=== PATIENT | female | born 1995 | race Caucasian/White ===

== ENCOUNTER 2016-12-15 21:22 | Emergency (ER) | payer OTHER ==
[2016-12-15] MEDS ORDERED: ONDANSETRON 4 MG/2 ML VIAL ONE (22:02)
[2016-12-15] MEDS ORDERED: NS 1,000 ML IV ONE ×2 (22:10→23:52)
[2016-12-15] MEDS ORDERED: ONDANSETRON 4 MG/2 ML VIAL IVP ONE (22:24)
--- NOTE | 2016-12-15 22:37 | EDPHY ---
H & P Stated Complaint: SHELLEY, N/V, abd pain, fatigue arrived from [place] yesterday HPI/ROS: CHIEF COMPLAINT: Nausea, vomiting, diarrhea, headache HISTORY OF PRESENT ILLNESS: Patient complains of nausea, diarrhea malaise, headache. She was recently in [facility] for 2 and half months. Approximately 11 days ago she developed diarrhea. This was profuse, watery diarrhea multiple times per day. This improved but not resolved over the course of 7 days. Three days ago she was seen there in [facility] and started on ciprofloxacin. Since that time, her diarrhea has significantly improved. She now complains of ongoing nausea, occasional vomiting, mild frontal headache and malaise. Today she slept for 5 hours unintentionally and had difficulty with her thought process after waking. She has no chest pain or shortness of breath. No back pain. 1 episode of fever. She has not had any neck pain or stiffness in time. She has some mild abdominal discomfort but no actual pain at this time. Blood work was drawn yesterday at [place]. No other associated complaints or modifying factors. Patient was traveling for leisure as she is about to start [employer] school this summer. REVIEW OF SYSTEMS: Ten systems reviewed and are negative unless otherwise noted in the HPI PERTINENT MEDICAL HISTORY: Denies EXAMINATION General Appearance: Alert, no distress Head: normocephalic, atraumatic Eyes: Pupils equal and round, no conjunctival pallor or injection. EOMs intact. No nystagmus. ENT, Mouth: Mucous membranes moist. Patchy erythema the posterior pharynx consistent with [id number]. There is no edema. Airway is widely patent. Uvula is midline. Neck: Normal inspection, supple, non-tender. No rigidity or meningismus. Painless range of motion all planes. Respiratory: Lungs are clear to auscultation. No wheezing, rhonchi or crackles. Cardiovascular: Regular rate and rhythm. No murmur. Pulses intact distally. Gastrointestinal: Bowel sounds are diminished but equal in all 4 quadrants. Abdomen is soft and nontender. No tympany. No rigidity. No CVA tenderness. Benign abdominal examination. Back: non-tender, no bony abnormalities Neurological: GCS 15. A&O, nonfocal, strength symmetric in all 4 limbs at 5/5. Normal [id number]. No pronator drift. Skin: Warm and dry, no rash. No petechiae or purpura. Extremities: Nontender, no pedal edema Psychiatric: Mood and affect normal DIFFERENTIAL DIAGNOSES: Including but not limited to viral illness, influenza, dehydration, food-borne illness, electrolyte disturbance MDM: 10:25 p.m. Nausea, vomiting, fatigue, headache and malaise. Diarrhea that has significantly improved last 24 hours. Vital signs were well within normal limits. Abdominal neuro exam is normal. Headache is mild at this point laboratory studies are pending. 11:40 p.m. Notified by RN the patient is still nauseated. I have ordered Reglan and Benadryl. Laboratory studies reveal a very mild elevation in her creatinine of 1.3, but this is an increase from 0.7 yesterday. Continue to provide IV fluid resuscitation monitor. 12:40 a.m. I have re-evaluated the patient 3 times. She continues to feel better with IV fluid resuscitation, and particularly after the Reglan and Benadryl IV. Her headache is improved. Dr. Sexton evaluated the patient. He offered CT scan and LP and she has declined. I do not feel that she exhibits any signs of meningismus by examination, but we did offer these test for further delineation. She has discussed the risks, benefits and alternatives and is comfortable with assuming the risk and declined the test. She will be discharged home with 2 forms of nausea medicine as well as Fioricet for headache. She was given strict return to the emergency department precautions for worsening headache, fever, any neck pain or stiffness, persistent vomiting. She is to rest, increase her fluid intake, and increase her caloric intake over the next few days. She verbalized her understanding of this. She is discharged home stable condition. SUPERVISION: Patient was evaluated in conjunction with the supervising physician. Please see their note for details. Source: Patient, Family Exam Limitations: No limitations - Personal History LMP (Females 10-55): Now Current Tetanus/Diphtheria Vaccine: Yes Current Tetanus Diphtheria and Acellular Pertussis (TDAP): Yes Tetanus Vaccine Date: 2014 - Medical/Surgical History Hx Asthma: No Hx Chronic Respiratory Disease: No Hx Diabetes: No Hx Cardiac Disease: No Hx Renal Disease: No Hx Cirrhosis: No Hx Alcoholism: No Hx HIV/AIDS: No Hx Splenectomy or Spleen Trauma: No Other PMH: denies - Social History Smoking Status: Never smoked Constitutional: Initial Vital Signs Temperature (C) 97.7 F 12/15/16 21:28 Heart Rate 92 12/15/16 21:28 Respiratory Rate 16 12/15/16 21:28 Blood Pressure 130/81 H 12/15/16 21:28 O2 Sat (%) 100 12/15/16 21:28 O2 Delivery Mode Room Air Allergies/Adverse Reactions: No Known Allergies Allergy (Unverified 12/15/16 21:31) Home Medications: Medication Instructions Recorded Cipro 12/15/16 Lexapro 12/15/16 Acet/Caffeine/Buta Fioricet 1 each PO Q6 PRN #15 tab 12/16/16 [Fioricet (*)] Ondansetron Odt [Zofran Odt 4 mg 4 mg PO Q6 PRN #12 tab 12/16/16 (*)] Promethazine HCl [Phenergan 25mg 25 mg PO Q8 PRN #12 tab 12/16/16 (*)] Medical Decision Making - Data Points Laboratory Results: Laboratory Results 12/15/16 22:10 12/15/16 22:10 12/15/16 12/15/16 12/15/16 22:30 22:10 22:10 WBC RBC Hgb Hct MCV MCH MCHC RDW Plt Count MPV Neut % (Auto) Lymph % (Auto) [place] % (Auto) Eos % (Auto) Baso % (Auto) Nucleat RBC Rel Count Absolute Neuts (auto) Absolute Lymphs (auto) Absolute Monos (auto) Absolute Eos (auto) Absolute Basos (auto) Absolute Nucleated RBC Immature Gran % Immature Gran # Sodium 142 mEq/L mEq/L (134-144) Potassium 4.2 mEq/L mEq/L (3.5-5.2) Chloride 107 mEq/L mEq/L (97-110) Carbon Dioxide 22 mEq/l mEq/l (22-31) Anion Gap 13 mEq/L mEq/L (8-16) BUN 15 mg/dL mg/dL (7-23) Creatinine 1.3 mg/dL H D mg/dL (0.6-1.0) Estimated GFR 51 Glucose 84 mg/dL mg/dL (70-100) Calcium 9.8 mg/dL mg/dL (8.5-10.4) Total Bilirubin 0.8 mg/dL mg/dL (0.1-1.4) Conjugated Bilirubin 0.4 mg/dL mg/dL (0.0-0.5) Unconjugated Bilirubin 0.4 mg/dL mg/dL (0.0-1.1) AST 46 IU/L IU/L (14-46) ALT 40 IU/L IU/L (9-52) Alkaline Phosphatase 61 IU/L IU/L (38-126) Total Protein 7.8 g/dL g/dL (6.3-8.2) Albumin 4.5 g/dL g/dL (3.5-5.0) Lipase 76.0 IU/L IU/L (23-300) Beta HCG, Qual NEGATIVE Urine Color Urine Appearance Urine pH Ur Specific [place] Urine Protein Urine Ketones Urine Blood Urine Nitrate Urine Bilirubin Urine Urobilinogen Ur Leukocyte Esterase Urine RBC Urine WBC Ur Epithelial Cells Urine Glucose Influenza A,B Rapid NEGATIVE FOR FLU (NEGATIVE) 12/15/16 12/15/16 22:10 21:48 WBC 9.40 10^3/uL 10^3/uL (3.80-9.50) RBC 4.39 10^6/uL 10^6/uL (4.18-5.33) Hgb 12.3 g/dL L g/dL (12.6-16.3) Hct 36.9 % L % (38.0-47.0) MCV 84.1 fL fL (81.5-99.8) MCH 28.0 pg pg (27.9-34.1) MCHC 33.3 g/dL g/dL (32.4-36.7) RDW 11.8 % % (11.5-15.2) Plt Count 236 10^3/uL 10^3/uL (150-400) MPV 10.2 fL fL (8.7-11.7) Neut % (Auto) 71.7 % % (39.3-74.2) Lymph % (Auto) 13.7 % L % (15.0-45.0) [place] % (Auto) 13.0 % % (4.5-13.0) Eos % (Auto) 1.1 % % (0.6-7.6) Baso % (Auto) 0.1 % L % (0.3-1.7) Nucleat RBC Rel Count 0.0 % % (0.0-0.2) Absolute Neuts (auto) 6.74 10^3/uL H 10^3/uL (1.70-6.50) Absolute Lymphs (auto) 1.29 10^3/uL 10^3/uL (1.00-3.00) Absolute Monos (auto) 1.22 10^3/uL H 10^3/uL (0.30-0.80) Absolute Eos (auto) 0.10 10^3/uL 10^3/uL (0.03-0.40) Absolute Basos (auto) 0.01 10^3/uL L 10^3/uL (0.02-0.10) Absolute Nucleated RBC 0.00 10^3/uL 10^3/uL (0-0.01) Immature Gran % 0.4 % % (0.0-1.1) Immature Gran # 0.04 10^3/uL 10^3/uL (0.00-0.10) Sodium Potassium Chloride Carbon Dioxide Anion Gap BUN Creatinine Estimated GFR Glucose Calcium Total Bilirubin Conjugated Bilirubin Unconjugated Bilirubin AST ALT Alkaline Phosphatase Total Protein Albumin Lipase Beta HCG, Qual Urine Color PALE YELLOW Urine Appearance CLEAR Urine pH 6.0 (5.0-7.5) Ur Specific [place] 1.006 (1.002-1.030) Urine Protein NEGATIVE (NEGATIVE) Urine Ketones NEGATIVE (NEGATIVE) Urine Blood 1+ H (NEGATIVE) Urine Nitrate NEGATIVE (NEGATIVE) Urine Bilirubin NEGATIVE (NEGATIVE) Urine Urobilinogen NEGATIVE EU EU (0.2-1.0) Ur Leukocyte Esterase NEGATIVE (NEGATIVE) Urine RBC 1-3 /hpf /hpf (0-3) Urine WBC 1-3 /hpf /hpf (0-3) Ur Epithelial Cells TRACE /lpf /lpf (NONE-1+) Urine Glucose NEGATIVE (NEGATIVE) Influenza A,B Rapid Medications Given: Discontinued Medications Sodium Chloride (Ns) 1,000 mls @ 0 mls/hr IV ONCE ONE PRN Reason: Wide Open Stop: 12/15/16 22:11 Last Admin: 12/15/16 22:10 Dose: 1,000 mls Ondansetron HCl (Zofran) 4 mg IVP EDNOW ONE Stop: 12/15/16 22:25 Last Admin: 12/15/16 22:26 Dose: 4 mg Departure - Departure Disposition: Home, Routine, Self-Care Clinical Impression: Dehydration Headache Qualifiers: Headache type: unspecified Headache chronicity pattern: acute headache Intractability: not intractable Qualified Code(s): R51 - Headache Fatigue Qualifiers: Fatigue type: unspecified Qualified Code(s): R53.83 - Other fatigue Condition: Good Instructions: Dehydration (ED), Acute Headache (ED), Fatigue (ED) Additional Instructions: Increased fluid intake, increase caloric intake. Rest over the weekend. Antiemetics as prescribed as needed. Return to ER for any change in headache, any neck pain or stiffness, fever, difficulty intake by mouth. Follow up with primary care physician early next week to recheck creatinine. Referrals: Caro Noe MD [Primary Care Provider] - As per Instructions [facility] (ED,. [Edm Groups for Call Sched] - As per Instructions Prescriptions: Acet/Caffeine/Buta Fioricet [Fioricet (*)] 1 each PO Q6 PRN #15 tab PRN Reason: Headache Ondansetron Odt [Zofran Odt 4 mg (*)] 4 mg PO Q6 PRN #12 tab PRN Reason: Nausea/Vomiting, Use 1st Promethazine HCl [Phenergan 25mg (*)] 25 mg PO Q8 PRN #12 tab PRN Reason: Nausea/Vomiting, Use 1st
[2016-12-15 22:39] LABS: ADD DIFF? NO; ADD MORPH? NO; ADD SCAN? YES; FRAGMENT RBC FLAG 0 (0-99); LEFT SHIFT FLG 0 (0-99); LIPEMIA HEMOLYSIS FLAG 80 (0-99); MEAN CELL HEMOGLOBIN CONCENTR. 33.3 g/dL (32.4-36.7); MEAN CELL VOLUME 84.1 fL (81.5-99.8); MEAN PLATELET VOLUME 10.2 fL (8.7-11.7)
[2016-12-15 22:50] LABS: % IMMATURE GRANULYOCYTES 0.4 % (0.0-1.1); ABSOLUTE IMMATURE GRANULOCYTES 0.04 10^3/uL (0.00-0.10); HEMATOCRIT 36.9 % (38.0-47.0); HEMOGLOBIN 12.3 g/dL (12.6-16.3); PLATELET CLUMPS FLAG 10 (0-99); PLATELET COUNT 236 10^3/uL (150-400); RED BLOOD CELL COUNT 4.39 10^6/uL (4.18-5.33); RED CELL DISTRIBUTION WIDTH 11.8 % (11.5-15.2)
[2016-12-15 22:51] LABS: ALANINE AMINOTRANSFERASE 40 IU/L (9-52); ALBUMIN 4.5 g/dL (3.5-5.0); ALKALINE PHOSPHATASE 61 IU/L (38-126); ANION GAP 13 mEq/L (8-16); ASPARTATE AMINOTRANSFERASE 46 IU/L (14-46); BILIRUBIN,TOTAL 0.8 mg/dL (0.1-1.4); BILIRUBIN-CONJUGATED 0.4 mg/dL (0.0-0.5); BILIRUBIN-UNCONJUGATED 0.4 mg/dL (0.0-1.1); CALCIUM 9.8 mg/dL (8.5-10.4); CARBON DIOXIDE 22 mEq/l (22-31); CHLORIDE 107 mEq/L (97-110); CREATININE 1.3 mg/dL (0.6-1.0); GLOMERULAR FILTRATION RATE 51; GLUCOSE 84 mg/dL (70-100); POTASSIUM 4.2 mEq/L (3.5-5.2); SODIUM 142 mEq/L (134-144); TOTAL PROTEIN 7.8 g/dL (6.3-8.2)
[2016-12-15 22:53] LABS: ATYPICAL LYMPHOCYTE FLAG 110 (0-99)
[2016-12-15 22:53] LABS: COLOR PALE YELLOW; LEUKOCYTE ESTERASE,URINE NEGATIVE (NEGATIVE); NITRITE,URINE NEGATIVE (NEGATIVE)
[2016-12-15 23:12] LABS: SCAN NEGATIVE
[2016-12-15] MEDS ORDERED: METOCLOPRAMIDE 10 MG/2 ML VIAL IVP ONE (23:41)
[2016-12-15] MEDS ORDERED: METOCLOPRAMIDE 10 MG/2 ML VIAL ONE (23:41)
[2016-12-16 01:05] VITALS: BP 126/84; PULSE 78; RESP 20; TEMP 98.2; O2SAT 96
== END 2016-12-16 01:08 | disposition home or self-care (01) ==
DX: E86.0 Dehydration (principal); R51 Headache; R53.83 Other fatigue
CPT/HCPCS: 96374; J1200; J2405; J2765

== ENCOUNTER 2016-12-19 20:41 | Emergency (ER) | payer OTHER ==
[2016-12-19 20:58] VITALS: TEMP 98.2; O2SAT 100
--- NOTE | 2016-12-19 22:17 | EDPHY ---
H & P Stated Complaint: SHELLEY, N/V, fatigue, seen for same 4d ago, recently in [place] Time Seen by Provider: 12/19/16 22:02 HPI/ROS: Chief Complaint: Headache HPI: 21-year-old woman whose had a headache for the last 16 days. Patient states symptoms began when she was traveling [facility]. Initially was intermittent. Three days after the onset of the headache she developed some diarrhea. She has seen [facility] for this and started on ciprofloxacin. She got home 5 days ago. Was seen emergency department had blood work done showed a mild elevation in creatinine but otherwise negative. Headache has been constant. She says since she was seen in the ED on the 12th following day she had some worsening vomiting with sleeping all day and fatigue. Ears are ringing. She has been taking Fioricet and ibuprofen with minimal relief. She felt well yesterday but was worse again today. Headache is about a 4/10. It ranges from a 3 to a 6 in intensity. Initially had some photophobia but this is resolved. Now has a mild nausea. No abdominal pain. No fevers or chills. Is not having any diarrhea or constipation further. Does have a history migraine headaches in the past but this feels very different. It was suggested that she might need an outpatient CT scan. She is scheduled to travel to [place] next week to begin [employer] school. ROS: 10 point Review of Systems is negative except as noted in the HPI. PMH: Ovarian cysts, anxiety Medications: Exelon, Lexapro, Allergies: No known drug allergies Social History: No smoking, occasional alcohol, occasional marijuana Family History: non-contributory Physical Exam: Gen: Awake, Alert, No Distress HEENT: Nose: no rhinorrhea Eyes: PERRLA, EOMI Mouth: Moist mucosa Neck: Supple, no JVD Chest: nontender, lungs clear to auscultation Heart: S1, S2 normal, no murmur Abd: Soft, non-tender, no guarding Back: no CVA tenderness, no midline tenderness Ext: no edema, non-tender Skin: no rash Neuro: CN II-XII intact, Sensation grossly intact, Strength 5/5 in bilateral upper and lower extremities - Personal History LMP (Females 10-55): Extended Cycle BCP/Inj Current Tetanus/Diphtheria Vaccine: Yes Current Tetanus Diphtheria and Acellular Pertussis (TDAP): Yes Tetanus Vaccine Date: 2015 - Medical/Surgical History Hx Asthma: No Hx Chronic Respiratory Disease: No Hx Diabetes: No Hx Cardiac Disease: No Hx Renal Disease: No Hx Cirrhosis: No Hx Alcoholism: No Hx HIV/AIDS: No Hx Splenectomy or Spleen Trauma: No Other PMH: denies - Social History Smoking Status: Never smoked Constitutional: Initial Vital Signs Temperature (C) 36.8 C 12/19/16 20:54 Heart Rate 117 H 12/19/16 20:54 Respiratory Rate 20 12/19/16 20:54 Blood Pressure 145/82 H 12/19/16 20:54 O2 Sat (%) 100 12/19/16 20:54 O2 Delivery Mode Room Air Allergies/Adverse Reactions: No Known Allergies Allergy (Verified 12/19/16 20:58) Home Medications: Medication Instructions Recorded Cipro 12/15/16 Lexapro 12/15/16 Acet/Caffeine/Buta Fioricet 1 each PO Q6 PRN #15 tab 12/16/16 [Fioricet (*)] Ondansetron Odt [Zofran Odt 4 mg 4 mg PO Q6 PRN #12 tab 12/16/16 (*)] Promethazine HCl [Phenergan 25mg 25 mg PO Q8 PRN #12 tab 12/16/16 (*)] Medical Decision Making - Diagnostics Imaging Results: Imaging Impressions Head CT 12/19/16 22:17 Impression: Normal. Findings and recommendations discussed with Renny Styles MD at 2300 hour, . Final report concurs with initial preliminary interpretation. Imaging: Discussed imaging studies w/ stock blender Radiologist ED Course/Re-evaluation: 21-year-old with headache which is persisting and fatigue after trip to [place]. Headache is not worsening. It is moderate to mild in nature. She has no meningismus. CT scan of her head is negative. Blood work is entirely normal. No evidence of acute infectious or neurologic process. She is feeling improved after medicines here. I have encouraged her to follow up with primary care physician when she moves [place] next week. She may need referral to neurology or infectious disease if her symptoms do not improve. - Data Points Laboratory Results: Laboratory Results 12/19/16 22:30 12/19/16 22:30 12/19/16 12/19/16 22:30 22:30 WBC 6.28 10^3/uL 10^3/uL (3.80-9.50) RBC 4.28 10^6/uL 10^6/uL (4.18-5.33) Hgb 12.2 g/dL L g/dL (12.6-16.3) Hct 35.4 % L % (38.0-47.0) MCV 82.7 fL fL (81.5-99.8) MCH 28.5 pg pg (27.9-34.1) MCHC 34.5 g/dL g/dL (32.4-36.7) RDW 11.9 % % (11.5-15.2) Plt Count 323 10^3/uL 10^3/uL (150-400) MPV 10.3 fL fL (8.7-11.7) Neut % (Auto) 62.1 % % (39.3-74.2) Lymph % (Auto) 27.7 % % (15.0-45.0) [place] % (Auto) 8.3 % % (4.5-13.0) Eos % (Auto) 1.3 % % (0.6-7.6) Baso % (Auto) 0.3 % % (0.3-1.7) Nucleat RBC Rel Count 0.0 % % (0.0-0.2) Absolute Neuts (auto) 3.90 10^3/uL 10^3/uL (1.70-6.50) Absolute Lymphs (auto) 1.74 10^3/uL 10^3/uL (1.00-3.00) Absolute Monos (auto) 0.52 10^3/uL 10^3/uL (0.30-0.80) Absolute Eos (auto) 0.08 10^3/uL 10^3/uL (0.03-0.40) Absolute Basos (auto) 0.02 10^3/uL 10^3/uL (0.02-0.10) Absolute Nucleated RBC 0.00 10^3/uL 10^3/uL (0-0.01) Immature Gran % 0.3 % % (0.0-1.1) Immature Gran # 0.02 10^3/uL 10^3/uL (0.00-0.10) Sodium 145 mEq/L H mEq/L (134-144) Potassium 4.2 mEq/L mEq/L (3.5-5.2) Chloride 107 mEq/L mEq/L (97-110) Carbon Dioxide 24 mEq/l mEq/l (22-31) Anion Gap 14 mEq/L mEq/L (8-16) BUN 13 mg/dL mg/dL (7-23) Creatinine 0.9 mg/dL mg/dL (0.6-1.0) Estimated GFR > 60 Glucose 96 mg/dL mg/dL (70-100) Calcium 10.0 mg/dL mg/dL (8.5-10.4) Total Bilirubin 0.5 mg/dL mg/dL (0.1-1.4) Conjugated Bilirubin 0.3 mg/dL mg/dL (0.0-0.5) Unconjugated Bilirubin 0.2 mg/dL mg/dL (0.0-1.1) AST 29 IU/L IU/L (14-46) ALT 39 IU/L IU/L (9-52) Alkaline Phosphatase 59 IU/L IU/L (38-126) Total Protein 7.9 g/dL g/dL (6.3-8.2) Albumin 4.5 g/dL g/dL (3.5-5.0) Lipase 105.0 IU/L IU/L (23-300) Medications Given: Discontinued Medications Sodium Chloride (Ns) 1,000 mls @ 0 mls/hr IV ONCE ONE PRN Reason: Wide Open Stop: 12/19/16 22:19 Last Admin: 12/19/16 22:33 Dose: 1,000 mls Ketorolac Tromethamine (Toradol) 15 mg IVP EDNOW ONE Stop: 12/19/16 23:02 Last Admin: 12/19/16 23:09 Dose: 15 mg Departure - Departure Disposition: Home, Routine, Self-Care Clinical Impression: Headache Condition: Good Instructions: General Headache (ED) Additional Instructions: Follow up with primary care physician when you arrived in [place] next week. I would continue taking acetaminophen alternating with ibuprofen as needed for headache. Return to the emergency department for worsening headache, confusion, fevers, chills, uncontrolled vomiting, or any other concerns. Referrals: Caro Noe MD [Primary Care Provider] - As per Instructions
[2016-12-19] MEDS ORDERED: NS 1,000 ML IV ONE (22:18)
[2016-12-19 22:53] LABS: ALANINE AMINOTRANSFERASE 39 IU/L (9-52); ALBUMIN 4.5 g/dL (3.5-5.0); ALKALINE PHOSPHATASE 59 IU/L (38-126); ANION GAP 14 mEq/L (8-16); ASPARTATE AMINOTRANSFERASE 29 IU/L (14-46); BILIRUBIN,TOTAL 0.5 mg/dL (0.1-1.4); BILIRUBIN-CONJUGATED 0.3 mg/dL (0.0-0.5); BILIRUBIN-UNCONJUGATED 0.2 mg/dL (0.0-1.1); CARBON DIOXIDE 24 mEq/l (22-31); CHLORIDE 107 mEq/L (97-110); CREATININE 0.9 mg/dL (0.6-1.0); GLOMERULAR FILTRATION RATE > 60; GLUCOSE 96 mg/dL (70-100); POTASSIUM 4.2 mEq/L (3.5-5.2); SODIUM 145 mEq/L (134-144); TOTAL PROTEIN 7.9 g/dL (6.3-8.2)
[2016-12-19 22:58] LABS: % IMMATURE GRANULYOCYTES 0.3 % (0.0-1.1); ABSOLUTE IMMATURE GRANULOCYTES 0.02 10^3/uL (0.00-0.10); ADD DIFF? NO; ADD MORPH? NO; ADD SCAN? YES; ATYPICAL LYMPHOCYTE FLAG 140 (0-99); FRAGMENT RBC FLAG 0 (0-99); HEMATOCRIT 35.4 % (38.0-47.0); HEMOGLOBIN 12.2 g/dL (12.6-16.3); LEFT SHIFT FLG 0 (0-99); LIPEMIA HEMOLYSIS FLAG 90 (0-99); MEAN CELL HEMOGLOBIN 28.5 pg (27.9-34.1); MEAN CELL HEMOGLOBIN CONCENTR. 34.5 g/dL (32.4-36.7); MEAN CELL VOLUME 82.7 fL (81.5-99.8); MEAN PLATELET VOLUME 10.3 fL (8.7-11.7); PLATELET CLUMPS FLAG 0 (0-99); PLATELET COUNT 323 10^3/uL (150-400); RED BLOOD CELL COUNT 4.28 10^6/uL (4.18-5.33); RED CELL DISTRIBUTION WIDTH 11.9 % (11.5-15.2)
[2016-12-19] MEDS ORDERED: KETOROLAC 15 MG/1 ML SDV IVP ONE (23:01)
[2016-12-19 23:23] LABS: SCAN NEGATIVE
[2016-12-19 23:40] VITALS: BP 145/87; PULSE 60; RESP 16
== END 2016-12-20 00:26 | disposition home or self-care (01) ==
DX: R51 Headache (principal)
CPT/HCPCS: 96374; J1885